=== PATIENT | female | born 1950 | race Caucasian/White ===

== ENCOUNTER 2018-04-16 11:36 | Outpatient (CLI) | payer MEDICARE, OTHER ==
--- NOTE | 2018-04-16 17:42 | CT Report ---
Reason: CHRONIC COUGH AND ALLERGIES Procedure Date: 04/16/2018 Accession Number: [id number] / [id number] Procedure: CT - Sinuses CPT Code: FULL RESULT: EXAM: CT SINUS EXAM DATE: 04/16/2018 12:03 PM. HISTORY: Chronic cough. Allergies. COMPARISONS: None. TECHNIQUE: Routine multi-axial CT imaging performed through the sinuses. Iodinated IV contrast: None. Reconstructions: Coronal and sagittal. In accordance with CT protocol optimization, one or more of the following dose reduction techniques were utilized for this exam: automated exposure control, adjustment of mA and/or KV based on patient size, or use of iterative reconstructive technique. FINDINGS: RIGHT Frontal: Normal. Ethmoid: Normal. Maxillary: Normal. Sphenoid: Normal. Drainage Pathways: The frontal recess, ostiomeatal complex and sphenoethmoidal recess are patent and normal. LEFT Frontal: Normal. Ethmoid: Normal. Maxillary: Normal. Sphenoid: Normal. Drainage Pathways: The frontal recess, ostiomeatal complex and sphenoethmoidal recess are patent and normal. Nasal Cavity: Normal. No mass or significant anatomic abnormality evident. Osseous Structures: Unremarkable. Orbits: Unremarkable. Other: None. IMPRESSION: Normal Sinus CT. No sinusitis. RADIA
== END 2018-04-16 11:37 | disposition home or self-care (01) ==
LOC: DI 11:36
PROVIDERS: ATTEND Internal Medicine
DX: R05 Cough (principal); J32.9 Chronic sinusitis, unspecified
CPT/HCPCS: 70486

== ENCOUNTER 2019-04-21 15:34 | Outpatient (CLI) | payer MEDICARE, OTHER ==
--- NOTE | 2019-04-27 09:43 | Mammography Report ---
Reason: ROUTINE SCREENING Procedure Date: 04/21/2019 Accession Number: [id number] / [id number] Procedure: MAURICIO - Screening Mammo w/Kojo CPT Code: FULL RESULT: EXAM: Screening Mammo w/Kojo DATE: 04/21/2019 3:56 PM CLINICAL HISTORY: Screening. TECHNIQUE: (B) - Bilateral CC and MLO views were obtained. COMPARISON: 07/01/2017 PARENCHYMAL PATTERN: (A) - The breasts demonstrate scattered fibroglandular densities bilaterally. FINDINGS: There are no suspicious masses, calcifications, or areas of distortion. IMPRESSION: Negative examination. BI-RADS category 1. RECOMMENDATION: (ANNUAL) - Recommend routine annual screening mammography. BI-RADS CATEGORY: (1) - Negative. STANDARD QUALIFYING STATEMENTS: 1. This examination was not reviewed with the aid of Computer-Aided Detection (CAD). 2. A negative or benign imaging report should not preclude biopsy if clinically suspicious findings are present. 3. Dense breasts may obscure an underlying neoplasm. 4. This examination was reviewed with the aid of 3D breast imaging (tomosynthesis).
== END 2019-04-21 15:35 | disposition home or self-care (01) ==
LOC: DI 15:34
PROVIDERS: ATTEND Internal Medicine
DX: Z12.31 Encounter for screening mammogram for malignant neoplasm of breast (principal)
CPT/HCPCS: 77063; 77067

== ENCOUNTER 2019-12-30 13:00 | Outpatient (CLI) | payer MEDICARE, OTHER ==
[2019-12-30 13:34] LABS: BUN - BLOOD UREA NITROGEN 14 mg/dL (6-20); CALCIUM 8.9 mg/dL (8.5-10.3); CARBON DIOXIDE - CO2 28 mmol/L (21-32); CHLORIDE 95 mmol/L (101-111); CHOL/HDL RATIO 1.8 (<4.4); CHOLESTEROL 149 mg/dL; CREATININE 0.6 mg/dL (0.4-1.0); GLUCOSE 102 mg/dL (70-100); HDL CHOLESTEROL 83 mg/dL; LDL CHOLESTEROL,CALCULATED 55 mg/dL; LDL/HDL RATIO 0.7 (<4.4); SODIUM 132 mmol/L (135-145); VLDL CHOLESTEROL 11 mg/dL
== END 2019-12-30 13:01 | disposition home or self-care (01) ==
LOC: LAB 13:00
PROVIDERS: ATTEND Internal Medicine Cardiovascular Disease
DX: I25.2 Old myocardial infarction (principal)
CPT/HCPCS: 36415; 80048; 80061; 83721

== ENCOUNTER 2020-03-22 10:54 | Outpatient (CLI) | payer MEDICARE, OTHER ==
--- NOTE | 2020-03-22 11:16 | XRAY Report ---
PROCEDURE: Chest 2 View X-Ray INDICATIONS: OTHER SPECIFIED DISEASES OF ESOPHAGUS TECHNIQUE: 2 view(s) of the chest. COMPARISON: None. FINDINGS: Surgical changes and devices: Left upper CELAYA capsule. Lungs and pleura: No pleural effusions or pneumothorax. Lungs are clear. Mediastinum: Mediastinal contours are normal. Heart size is normal. Bones and chest wall: No suspicious bony abnormalities. Soft tissues appear unremarkable. IMPRESSION: Left upper quadrant CELAYA capsule. No acute cardiopulmonary process demonstrated radiogra phically. Reviewed by: Morgan Estes MD on 03/22/2020 11:14 AM PDT Approved by: Morgan Estes MD on 03/22/2020 11:14 AM PDT Station ID: [id number]
== END 2020-03-22 10:55 | disposition home or self-care (01) ==
LOC: DI.N 10:54
PROVIDERS: ATTEND Nurse Practitioner Family
DX: K22.8 Other specified diseases of esophagus (principal)
CPT/HCPCS: 71046

== ENCOUNTER 2023-11-12 14:04 | Outpatient (CLI) | payer MEDICARE, OTHER ==
[2023-11-12 14:52] LABS: CALCIUM 9.7 mg/dL (8.5-10.3); CREATININE 0.7 mg/dL (0.6-1.3); POTASSIUM 3.4 mmol/L (3.5-4.5)
== END 2023-11-12 14:05 | disposition home or self-care (01) ==
LOC: LAB 14:04
PROVIDERS: ATTEND Internal Medicine Cardiovascular Disease
DX: I10 Essential (primary) hypertension (principal)
CPT/HCPCS: 36415; 80048

== ENCOUNTER 2023-11-12 14:18 | Outpatient (CLI) | payer MEDICARE, OTHER | END 2023-11-12 14:19 | disposition home or self-care (01) | LOC: DI 14:18 | PROVIDERS: ATTEND Internal Medicine Cardiovascular Disease | DX: R05.3 Chronic cough (principal); I15.9 Secondary hypertension, unspecified; I25.2 Old myocardial infarction; I51.7 Cardiomegaly | CPT/HCPCS: 36415; 80048; 93307 ==

== ENCOUNTER 2023-11-16 09:06 | Outpatient (CLI) | payer MEDICARE, OTHER ==
[2023-11-16 09:57] VITALS: BP 150/83; O2SAT 100
--- NOTE | 2023-11-16 09:57 | SLEEP CARE CONSULTATION ---
Information from patient questionnaire entered by Dave Velez. I have reviewed and concur with the information entered by Dave Velez. This document represents the service I personally performed and the decisions made by me, Jose Khan MD, [facility]. History of Present Illness Service Date and Time: 11/16/2023 09 Reason for Visit: New patient Chief Complaint: reports: Insomnia, Fatigue, Frequent awakenings at night Date of Onset: 10+YRS Usual bedtime: [id number] Time it takes to fall asleep: 90MIN-2HRS Snores at night: No Observed to quit breathing while asleep: No Sleeps alone due to snoring: No Number of times waking at night: 3-4 Reasons for waking at night: reports: Bathroom, Other (UNKNOWN) Toss, Turn, or Twitch while sleeping: Yes Recalls having dreams: Yes Usually gets out of bed at: [id number] Feels refreshed in the morning: No Morning headache: Yes Sleepy or fatigued during the day: Yes Ever fallen asleep while driving: No Takes day naps: No Dreams during day naps: No Prior sleep studies: No Additional HPI information: I had the pleasure of seeing Ms. Templeton today regarding the possibility of her having a sleep disorder. As you know, she is a 73-year-old woman who complains of insomnia for the past 10 years. She goes to bed between 10 and 11 pm, and it takes her 1.5 to 2 hours to fall asleep. 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 She retired 8 years ago and moved up here. She does not snore. She has never been observed to stop breathing in her sleep. Her sleeps in the same bed. She can recall waking up on the average of 3 - 4 times during the night. Most of the time she wakes up because of having to use the bathroom. She has never awakened because of her own snoring, choking, or having to gasp for air. There is a lot of tossing and turning in her sleep. She has somniloquy (sleep talking) but not somnambulism (sleep walking). Generally, she can recall having dreams. In the morning she usually gets up out of the bed around 8 8:30 a.m. not feeling refreshed nor rested. She has a morning headache. During the day she complains of feeling fatigued but not sleepy. Her score on Posey Sleepiness Scale is 1 out of 24. She never has fallen asleep while driving nor has had any accident due to sleepiness. She usually does not take naps during the day. She denies having impaired concentration during the day. 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 Patient is and lives in . Have you smoked in the past 12 months: No Alcohol use: Yes Alcohol amount and frequency: 1GLASS A DAY WINE Caffeine use: Yes Caffeine amount and frequency: COFFEE DAILY Allergies and Home Medications Known drug allergies: Yes ( LISTED) Drug allergies reviewed: Yes Home medication list reviewed: Yes Review of Systems Weight gain over past 5 years: 5 Weight loss over past 5 years: 4 Cardiovascular: reports: high blood pressure, have to sleep sitting up Respiratory: reports: shortness of breath, sputum production, chronic cough Gastrointestinal: reports: heartburn Urinary: reports: incontinence Neurological: reports: headaches, gait or balance problems Psychiatric: reports: anxiety, depression Ear/Nose/Throat: reports: nasal congestion, sinus problems, tonsillectomy, wisdom teeth removed Endocrine: denies: thyroid disease, history of goiter, sluggishness, too hot or cold, excessive thirst, increased appetite, increased urination, unexplained weakness, other Musculoskeletal: reports: joint pain, mobility problems Physical Exam Vital signs obtained and entered by: DAVE Yadav MA Blood Pressure: 150/83 (LEFT ARM) Cuff size: regular Heart Rate: 78 O2 Saturation: 100 Height: 5 ft 7.5 in Weight: 173 lb 12.8 oz Body Mass Index: 26.8 BMI Classification: Overweight Neck circumference: 14 Mood/affect: Normal HEENT: No craniofacial malformation Nostrils: patent to airflow Turbinates: normal Septum: midline Mouth and throat: narrow oropharynx Tonsils: absent bilaterally Chin and jaw: normal size and position Heart: regular rate and rhythm Lungs: clear bilaterally Extremities: 1+ edema Neurologic: intact Impression and Plan IMPRESSION: 1. Insomnia, due to excessive time spent in bed of 10+ hours a night. It appears that after she retired, her wake up has slipped from 5 am to 8:30 am but she insists on going to bed the same time. Therefore, it is only appropriate that it takes her 2 hours to fall asleep. Cognitive behavior therapy (CBTi) was conducted. I recommend she go to bed 2 hours later. On the other hand, if she would like to go to bed at 10 pm, she will have to first wake up no later than 6 am consistently. Plan: 1. Maintain a regular wake up time and spend no more than 8 hours in bed at night. Avoid naps. 2. Return for a follow up on as needed basis. Follow up with Sleep Care in: as needed Visit Type: In Office Time Spent with Patient (minutes): 15 Provider Statement: I spent 100% of the Face to Face Visit with the patient with greater than 50% spent counseling the patient and coordination of care.
== END 2023-11-16 09:07 | disposition home or self-care (01) ==
LOC: SC 09:06
PROVIDERS: ATTEND Internal Medicine Pulmonary Disease
DX: G47.00 Insomnia, unspecified (principal)
CPT/HCPCS: 99202; G0463; 99212

== ENCOUNTER 2024-01-07 09:19 | Emergency (ER) | payer MEDICARE, OTHER ==
[2024-01-07 09:48] VITALS: O2SAT 97
--- NOTE | 2024-01-07 10:20 | XRAY Report ---
PROCEDURE: Chest 1V INDICATIONS: cough TECHNIQUE: One view of the chest was acquired. COMPARISON: 03/22/2020. FINDINGS: Surgical changes and devices: None. Lungs and pleura: No pleural effusions or pneumothorax. Mild chronic diffuse interstitial prominence . Mediastinum: Mediastinal contours appear normal. Heart size is normal. Bones and chest wall: No suspicious bony lesions. Overlying soft tissues appear unremarkable. IMPRESSION: Mild chronic diffuse interstitial prominence. No focal infiltrates. Reviewed by: Sandeep Albarado MD on 01/07/2024 10:19 AM PDT Approved by: Sandeep Albarado MD on 01/07/2024 10:19 AM PDT Station ID: [id number]
--- NOTE | 2024-01-07 13:07 | ED Physician Documentation ---
PD HPI URI - Stated complaint Stated Complaint: COUGH,SOA - Chief complaint Chief Complaint: Resp - History obtained from History obtained from: Patient - History of Present Illness Timing - onset: How many weeks ago (few weeks of persistnet cough and now worsening.) Timing duration: Weeks Timing details: Gradual onset, Still present Associated symptoms: Productive cough, Dyspnea. 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 Cardiovascular: Coronary stent - Present Medications Home Medications: Ambulatory Orders Medication Instructions Recorded Confirmed Albuterol Sulf [Ventolin Hfa 3 puffs INH QID #1 each 01/07/24 Inhaler] Amoxicillin 500 mg PO TID #15 cap 01/07/24 Benzonatate [Tessalon] 100 mg PO TID PRN #20 cap 01/07/24 dexAMETHasone [Decadron] 4 mg PO DAILY #5 tablet 01/07/24 - Allergies Allergies/Adverse Reactions: Allergies Allergy/AdvReac Type Severity Reaction Status Date / Time ciprofloxacin [From Cipro] Allergy Hives Verified 01/07/24 09:45 Sulfa (Sulfonamide Allergy Nausea Verified 01/07/24 09:45 Antibiotics) - Social History Does the pt smoke?: No Smoking Status: Never smoker Does the pt drink ETOH?: No Does the pt have substance abuse?: No PD ED PE NORMAL - Vitals Vital signs reviewed: Yes - General General: Alert and oriented X 3, No acute distress, Well developed/nourished - HEENT HEENT: Pharynx benign - Neck Neck: Supple, no meningeal sign, No adenopathy - Cardiac Cardiac: RRR, No murmur - Respiratory Respiratory: No respiratory distress. No: Clear bilaterally (some decreased tidal volume with exp wheezing. ) - Derm Derm: Normal color - Extremities Extremities: No edema, No calf tenderness / cord - Neuro Neuro: Alert and oriented X 3, No motor deficit, Normal speech Results - Vitals Vitals: Oxygen O2 Source Room air - Rads (name of study) chest xray Relevant Findings:: Prelim report reviewed, EMP independent interpretation of test (chronic interstitial changes. No infiltrates. ) PD Medical Decision Making - ED course Complexity details: considered differential (recent Viral URI with persistent and worsening cough. COnsider viral still and inflammation vs secondary bacterial. CXR without pneumonia. ), d/w patient Departure - Departure Disposition: 01 Home, Self Care Clinical Impression: Dyspnea, Persistent cough, Post-viral cough syndrome Condition: Stable Record reviewed to determine appropriate education?: Yes Prescriptions: Amoxicillin 500 mg PO TID #15 cap dexAMETHasone [Decadron] 4 mg PO DAILY #5 tablet Benzonatate [Tessalon] 100 mg PO TID PRN #20 cap PRN Reason: Cough Albuterol Sulf [Ventolin Hfa Inhaler] 3 puffs INH QID #1 each Comments: Stay well-hydrated. We can try combination of amoxicillin 3 times daily for potential bacterial component at this point. Regardless of viral or bacterial or just persistent inflammatory, I would anticipate improvement with a combination of albuterol inhaler 2 to 3 puffs 4 times daily regularly. In addition dexamethasone steroid for inflammation of the airways to help with the cough and wheezing. Also benzonatate if needed for cough. You can continue with [id number] cough medicine such as Robitussin DM. The prescription cough medicine from your primary care is okay as well. I sent your prescriptions to [facility] pharmacy. I would anticipate improvement over the next few days and resolution over 3 to 5 days. Your chest x-ray was good without any signs of obvious pneumonia. There was some mild general inflammatory change consistent with post viral pneumonitis/lung inflammation. It did not have the appearance of congestive heart failure. Forms: PCP List Discharge Date/Time: 01/07/24 13:54
[2024-01-07] MEDS: AMOXICILLIN 250 MG CAPSULE PO STA (13:48)
[2024-01-07] MEDS: BENZONATATE 100 MG CAPSULE PO STA (13:49)
[2024-01-07] MEDS: dexAMETHasone 4 MG TABLET PO STA (13:49)
[2024-01-07 13:58] VITALS: BP 180/108
== END 2024-01-07 13:54 | disposition home or self-care (01) ==
LOC: ED 09:19
DX: R05.3 Chronic cough (principal); R06.00 Dyspnea, unspecified; I10 Essential (primary) hypertension; I25.10 Atherosclerotic heart disease of native coronary artery without angina pectoris; I25.2 Old myocardial infarction
CPT/HCPCS: 71045; 99283; 99284; A9270; J8540

== ENCOUNTER 2024-02-29 10:26 | Emergency (ER) | payer MEDICARE, OTHER ==
[2024-02-29 11:05] LABS: BASOPHILS % (AUTO) 0.6 %; EOSINOPHILS # (AUTO) 0.1 10^3/uL (0.0-0.7); EOSINOPHILS % (AUTO) 2.1 %; HGB - HEMOGLOBIN 14.1 g/dL (12.0-16.0); LYMPHOCYTES # (AUTO) 1.3 10^3/uL (1.5-3.5); LYMPHOCYTES % (AUTO) 20.9 %; MEAN CORPUSCULAR HEMOGLOBIN 29.5 pg (27.0-31.0); MEAN CORPUSCULAR HGB CONC 33.6 g/dL (32.0-36.0); MEAN CORPUSCULAR VOLUME 87.9 fL (81.0-99.0); MEAN PLATELET VOLUME 9.2 fL (7.9-10.8); MONOCYTES # (AUTO) 0.4 10^3/uL (0.0-1.0); MONOCYTES % (AUTO) 7.1 %; NEUTROPHILS # (AUTO) 4.3 10^3/uL (1.5-6.6); NEUTROPHILS % (AUTO) 69.1 %; PLT - PLATELET COUNT 232 10^3/uL (130-450); RED BLOOD COUNT 4.78 10^6/uL (4.20-5.40); RED CELL DISTRIBUTION WIDTH 13.4 % (12.0-15.0); WHITE BLOOD COUNT 6.2 x10^3/uL (4.8-10.8)
[2024-02-29 11:24] LABS: ALBUMIN 4.7 g/dL (3.2-5.5); ALBUMIN/GLOBULIN RATIO 1.8 (1.0-2.2); BILIRUBIN,TOTAL 0.6 mg/dL (0.2-1.0); CREATININE 0.7 mg/dL (0.6-1.3); POTASSIUM 3.7 mmol/L (3.5-4.5); TOTAL PROTEIN 7.3 g/dL (6.4-8.9)
[2024-02-29 11:27] LABS: TROPONIN I HIGH SENSITIVITY 4.6 ng/L (2.3-14.8)
--- NOTE | 2024-02-29 11:38 | ED Physician Documentation ---
History of Present Illness - Stated complaint Stated Complaint: SOA CHEST TIGHTNESS POST RX - Chief complaint Chief Complaint: Cardiac - History obtained from History obtained from: Patient - Additonal information Additional information: The patient comes to the emergency department chief complaint of episodes of chest tightness occasionally and feeling anxious since starting Prozac about a week and a half ago. The patient states that she has never had the symptoms before then. She states they come on randomly and are not related to any specific activity or trigger as far she can tell. She has felt slightly warm and has had a little bit of a cough and wonders also if she may have coincidently come down with something. The patient states that she feels somewhat anxious currently, but denies any chest tightness or chest pain at this point in time. Patient sees Dr. Kim and states that she has been told her heart is doing well. She denies any chest pain. No other complaints at this time. 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 Cardiovascular: Coronary stent - Present Medications Home Medications: Ambulatory Orders Medication Instructions Recorded Confirmed Albuterol Sulf [Ventolin Hfa 3 puffs INH QID #1 each 01/07/24 Inhaler] Amoxicillin 500 mg PO TID #15 cap 01/07/24 Benzonatate [Tessalon] 100 mg PO TID PRN #20 cap 01/07/24 dexAMETHasone [Decadron] 4 mg PO DAILY #5 tablet 01/07/24 - Allergies Allergies/Adverse Reactions: Allergies Allergy/AdvReac Type Severity Reaction Status Date / Time ciprofloxacin [From Cipro] Allergy Hives Verified 02/29/24 10:41 Sulfa (Sulfonamide Allergy Nausea Verified 02/29/24 10:41 Antibiotics) - Social History Does the pt smoke?: No Smoking Status: Never smoker Does the pt drink ETOH?: No Does the pt have substance abuse?: No PD ED PE NORMAL - Vitals Vital signs reviewed: Yes - General General: Alert and oriented X 3, No acute distress, Well developed/nourished - HEENT HEENT: Atraumatic, PERRL, EOMI, Moist mucous membranes - Neck Neck: Supple, no meningeal sign - Cardiac Cardiac: RRR, No murmur - Respiratory Respiratory: No respiratory distress, Clear bilaterally - Abdomen Abdomen: Soft, Non tender, Non distended - Derm Derm: Normal color, Warm and dry, No rash - Extremities Extremities: No deformity, No edema - 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 Relevant findings are: Rate: Rate (enter#) (70) Rhythm: NSR Meridian: Normal Intervals: Normal DC QRS: Normal Ischemia: Normal ST segments - Labs Labs: Laboratory Tests 02/29/24 02/29/24 02/29/24 10:59 10:59 11:30 WBC 6.2 RBC 4.78 Hgb 14.1 Hct 42.0 MCV 87.9 MCH 29.5 MCHC 33.6 RDW 13.4 Plt Count 232 MPV 9.2 Neut # (Auto) 4.3 Lymph # (Auto) 1.3 L Rogers # (Auto) 0.4 Eos # (Auto) 0.1 Baso # (Auto) 0.0 Absolute Nucleated RBC 0.00 Nucleated RBC % 0.0 Sodium 128 L Potassium 3.7 Chloride 94 L Carbon Dioxide 28 Anion Gap 6.0 BUN 5 L Creatinine 0.7 Estimated GFR (MDRD) 82 L Glucose 106 H Calcium 10.0 Total Bilirubin 0.6 AST 16 ALT 18 Alkaline Phosphatase 93 Troponin I High Sens 4.6 Total Protein 7.3 Albumin 4.7 Globulin 2.6 Albumin/Globulin Ratio 1.8 Lipase 16 Nasal Adenovirus (PCR) NOT DETECTED Nasal B. parapertussis DNA (PCR) NOT DETECTED Nasal Coronavir 229E PCR NOT DETECTED Nasal Coronavir HKU1 PCR NOT DETECTED Nasal Coronavir NL63 PCR NOT DETECTED Nasal Coronavir OC43 PCR NOT DETECTED Nasal Enterovir/Rhinovir PCR NOT DETECTED Nasal Influenza B PCR NOT DETECTED Nasal Influenza A PCR NOT DETECTED Nasal Parainfluen 1 PCR NOT DETECTED Nasal Parainfluen 2 PCR NOT DETECTED Nasal Parainfluen 3 PCR NOT DETECTED Nasal Parainfluen 4 PCR NOT DETECTED Nasal RSV (PCR) NOT DETECTED Nasal B.pertussis DNA PCR NOT DETECTED Nasal C.pneumoniae (PCR) NOT DETECTED Lyndon Human Metapneumo PCR NOT DETECTED Nasal M.pneumoniae (PCR) NOT DETECTED Nasal SARS-CoV-2 (PCR) NOT DETECTED - Rads (name of study) chest XR Relevant Findings:: Final report received, See rad report (neg) PD Medical Decision Making - ED course Complexity details: reviewed results, re-evaluated patient, considered differential, d/w patient ED course: The patient was worked up with labs, EKG, chest x-ray, and respiratory PCR panel, all of which were unremarkable. Her troponin was negative. I discussed with the patient that it is possible that the Prozac is causing some paradoxical symptoms and some adverse effects and that she will need to speak with her PCP to determine whether she should try being on something else instead. I have encouraged patient to call Dr. Kim's office to let them know what is going on as well and to get a follow-up appointment for soon as possible. Patient is agreeable this plan. We have discussed the usual medications for return. Departure - Departure Disposition: 01 Home, Self Care Clinical Impression: Nausea, Dizziness, Persistent cough Condition: Stable Instructions: ED Dizziness UKO, ED Drug React Adverse Other, ED Nausea Vomiting Comments: Your laboratory studies and EKG look good. A viral panel is pending at this time and does not come back right away. However, we will call you if there are any significant positive results. You may also access our hospital website at [email or web address], click on the "my [facility]" tab and sign for the patient portal to view your results yourself. It is not entirely clear what is causing your symptoms, but it is very much possible that it is the medication if this all seems to have started after you started your Prozac. You will have to talk to your PA about what you would like to be on instead of the Prozac or what she might recommend. Please also call to make a follow-up appointment with Dr. Kim for a checkup. Forms: PCP List Discharge Date/Time: 02/29/24 11:47
[2024-02-29 11:47] VITALS: BP 156/92; O2SAT 100
--- NOTE | 2024-02-29 11:50 | XRAY Report ---
PROCEDURE: Chest 1V INDICATIONS: Chest pain TECHNIQUE: One view of the chest was acquired. COMPARISON: 01/07/2024 FINDINGS: Surgical changes and devices: None. Lungs and pleura: No pleural effusions or pneumothorax. Lungs are clear. Mediastinum: Mediastinal contours appear normal. Heart size is normal. Bones and chest wall: No suspicious bony lesions. Overlying soft tissues appear unremarkable. IMPRESSION: No acute cardiopulmonary process. Reviewed by: Sandoval Garcia MD on 02/29/2024 11:49 AM PDT Approved by: Sandoval Garcia MD on 02/29/2024 11:49 AM PDT Station ID: [id number]
[2024-02-29 12:47] LABS: CORONAVIRUS 229E-RESP PCR NOT DETECTED; CORONAVIRUS HKU1-RESP PCR NOT DETECTED; CORONAVIRUS NL63-RESP PCR NOT DETECTED; CORONAVIRUS OC43-RESP PCR NOT DETECTED; HUMAN METAPNEUMOVIRUS NOT DETECTED; INFLUENZA A- RESP PCR PANEL NOT DETECTED; INFLUENZA B - RESP PCR PANEL NOT DETECTED; PARAINFLUENZA VIRUS 1 NOT DETECTED; PARAINFLUENZA VIRUS 2 NOT DETECTED; PARAINFLUENZA VIRUS 3 NOT DETECTED; RHINOVIRUS/ENTEROVIRUS NOT DETECTED; SARS-CoV-2 -RESP PCR PANEL NOT DETECTED
[2024-02-29 12:48] LABS: B. PARAPERTUSSIS- RESP PCR PAN NOT DETECTED; B. PERTUSSIS- RESP PCR PANEL NOT DETECTED; C. PNEUMONIAE- RESP PCR PANEL NOT DETECTED; M. PNEUMONIAE- RESP PCR PANEL NOT DETECTED; PARAINFLUENZA VIRUS 4 NOT DETECTED; RSV- RESP PCR PANEL NOT DETECTED
== END 2024-02-29 11:47 | disposition home or self-care (01) ==
LOC: ED 10:26
DX: R05.9 Cough, unspecified (principal); R11.0 Nausea; R42 Dizziness and giddiness; I10 Essential (primary) hypertension; I25.10 Atherosclerotic heart disease of native coronary artery without angina pectoris; I25.2 Old myocardial infarction
CPT/HCPCS: 36415; 80053; 83690; 84484; 85025; 87633; 93005; 99283; 99284